=== PATIENT | female | born 1980 | race Hispanic/Latino ===

== ENCOUNTER 2019-02-21 09:11 | Emergency (ER) | payer SELFPAY ==
[~2019-02-21] VITALS: Ht 162.6 cm; Wt 65.8 kg
[2019-02-21] MEDS ORDERED: ZOFRAN4 MG PO (10:58)
[2019-02-21] MEDS ORDERED: PROTONIX40 MG PO (10:58)
== END 2019-02-21 11:07 | disposition home or self-care (01) ==
LOC: ED 09:11
DX: R10.13 Epigastric pain (principal)
CPT/HCPCS: 80053; 81001; 83690; 84703; 85025; 96374; 96375; 99284-25; C9113; J2405

== ENCOUNTER 2023-06-10 13:19 | Emergency (ER) | payer SELFPAY ==
[~2023-06-10] VITALS: Ht 162.6 cm; Wt 65.3 kg
[~2023-06-10 13:19] MED LIST: CEPHALEXIN250 MG PO; PROTONIX40 MG PO; PYRIDIUM100 MG PO; ZOFRAN4 MG PO
--- OUTSIDE RECORDS SUMMARY | 2023-06-10 13:27 | XMS ---
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 Radha VISIT COUNT ([address] [facility] TOTAL 2 NOTE: Visits indicate total known visits. ED/UCC VISIT TRACKING (12 MO.) 06/10/2023 13:20 [facility] TYPE: Emergency COMPLAINT: - STOMACH PAIN 05/28/2023 19:08 [facility] TYPE: Emergency COMPLAINT: - ABDOMINAL PAIN DIAGNOSES: - Contact with and (suspected) exposure to COVID-19 - Dysuria - Urinary tract infection, site not specified INPATIENT VISIT TRACKING (12 MO.) No inpatient visits to display in this time frame [email or web address]
[2023-06-10 15:43] LABS: BILIRUBIN, URINE NEGATIVE (negative); BLOOD/HGB, URINE NEGATIVE (Negative); KETONE, URINE NEGATIVE (Negative); LEUK ESTERASE, URINE NEGATIVE (negative); NITRITE, URINE NEGATIVE (negative); PH, URINE 5.5 (5-7)
[2023-06-10 15:55] LABS: BASOPHILS 0.8 % (0-2); EOSINOPHILS 1.7 % (0-6); HEMATOCRIT 38.1 % (35.0-50.0); HEMOGLOBIN 12.6 g/dL (12.0-18.0); MCH 29.3 (27-36); MCV 88.7 fl (81-99); MONOCYTES 8.6 % (0-12); NEUTROPHILS 65.9 % (39-80); PLATELET COUNT 247 K/uL (140-440); RDW 13.5 (10.5-15.0)
[2023-06-10 16:09] LABS: ALBUMIN 3.2 g/dL (3.4-5.0); ALBUMIN/GLOBULIN RATIO 0.78 (1.1-2.4); BILIRUBIN, TOTAL 0.4 ng/dL (0.2-1.0); CALCIUM 8.9 mg/dL (8.5-10.1); CREATININE, SERUM 0.5 mg/dL (0.55-1.02); PROTEIN, TOTAL 7.3 g/dL (6.4-8.2)
[2023-06-10] MEDS ORDERED: KETOROLAC TROMETHAMINE 15 MG/ML VIAL IV ONE (16:30)
[2023-06-10] MEDS ORDERED: OMEPRAZOLE20 MG PO (18:53)
[2023-06-10] MEDS ORDERED: ONDANSETRON ODT8 MG PO (18:53)
[2023-06-10] MEDS ORDERED: ACETAMINOPHEN 325 MG TAB PO ONE (19:00)
[2023-06-10] MEDS ORDERED: PANTOPRAZOLE SODIUM 40 MG TABEC PO ONE (19:00)
[2023-06-10 19:07] VITALS: BP 107/59
== END 2023-06-10 19:07 | disposition home or self-care (01) ==
LOC: ED 13:19
PROVIDERS: Emergency Medicine
DX: K29.00 Acute gastritis without bleeding (principal); Z79.899 Other long term (current) drug therapy
CPT/HCPCS: 36415; 76705; 80053; 81003; 83690; 84703; 85025; A9270; J1885